=== PATIENT | male | born 1930 | race Caucasian/White ===

== ENCOUNTER 2020-06-15 18:02 | Emergency (ER) | payer MEDICARE ==
[~2020-06-15] VITALS: Ht 167.6 cm; Wt 90.7 kg
[~2020-06-15 18:02] MED LIST: 2 BP MEDS; ASPI81CH PO
[2020-06-15 19:02] LABS: Source, Urine Clean Catch
[2020-06-15 19:11] LABS: Appearance, Urine Turbid (Clear); Bilirubin, Urine Neg (Neg); Blood, Urine 5+ (Neg); Color, Urine Amber (P-Yellow); Glucose Qualitative, Urine Neg (Neg); Ketones, Urine 1+ (Neg); Leukocyte Esterase, Urine 3+ (Neg); Nitrite, Urine Pos (Neg); Protein, Urine 3+ (Neg); Urobilinogen, Urine 1+ (Normal)
[2020-06-15 19:22] LABS: Bacteria Many /hpf; Red Blood Cells, Urine TNTC /hpf (0-2); Squamous Epithelial Cells Not Seen /hpf (Few); White Blood Cells, Urine TNTC /hpf (0-5)
[2020-06-15] MEDS ORDERED: CEFP200 PO (19:28)
== END 2020-06-15 19:45 | disposition home or self-care (01) ==
LOC: ER 18:02
PROVIDERS: Physician Assistant
DX: T83.091A Other mechanical complication of indwelling urethral catheter, initial encounter (principal); N39.0 Urinary tract infection, site not specified; Z79.82 Long term (current) use of aspirin; Z87.891 Personal history of nicotine dependence; Z79.899 Other long term (current) drug therapy
CPT/HCPCS: 51702; 81001; 87077; 87086; 87186; 99283-25; A9270-GY

== ENCOUNTER 2020-06-17 05:02 | Emergency (ER) | payer MEDICARE ==
[~2020-06-17] VITALS: Ht 172.7 cm; Wt 90.7 kg
[~2020-06-17 05:02] MED LIST changes: +CEFP200 PO
[2020-06-17] MEDS ORDERED: BENAZEPRIL-HCT1 EACH PO (05:34)
== END 2020-06-17 06:39 | disposition home or self-care (01) ==
LOC: ER 05:02
DX: T83.091A Other mechanical complication of indwelling urethral catheter, initial encounter (principal); E11.9 Type 2 diabetes mellitus without complications; Z87.891 Personal history of nicotine dependence; Z79.82 Long term (current) use of aspirin; Z79.899 Other long term (current) drug therapy; Z98.890 Other specified postprocedural states
CPT/HCPCS: 51700; 99283-25

== ENCOUNTER 2021-09-25 17:12 | Inpatient (IN) | payer MEDICARE ==
[~2021-09-25] VITALS: Ht 167.6 cm; Wt 86.6 kg
[~2021-09-25 17:12] MED LIST changes: +BENAZEPRIL-HCT1 EACH PO
[2021-09-25 18:21] LABS: BASOPHILS ABSOLUTE AUTO 0.04 K/mm3 (0.00-0.23); BASOPHILS PERCENT AUTO 1 % (0-2); EOSINOPHILS PERCENT AUTO 0 % (0-6); Hematocrit 41.5 % (37.0-53.0); Hemoglobin 14.1 g/dL (13.5-17.5); IMMATURE GRAN ABSOLUTE AUTO 0.02 K/mm3 (0.00-0.10); IMMATURE GRAN PERCENT AUTO 0 % (0-1); LYMPHOCYTES ABSOLUTE AUTO 0.67 K/mm3 (0.84-5.20); LYMPHOCYTES PERCENT AUTO 11 % (21-46); MONOCYTES ABSOLUTE AUTO 0.72 K/mm3 (0.16-1.47); MONOCYTES PERCENT AUTO 12 % (4-13); Mean Corpuscular HGB 30.6 pg (26.0-34.0); Mean Corpuscular Volume 90 fL (80-100); Mean Platelet Volume 11.1 fL (9.1-12.4); NEUTROPHILS ABSOLUTE AUTO 4.82 K/mm3 (1.96-9.15); NEUTROPHILS PERCENT AUTO 77 % (41-73); Platelet Count 108 K/mm3 (150-400); RDW Coefficient Variation 13.8 % (11.7-14.2); RDW Standard Deviation 45.1 fL (35.1-46.3); Red Blood Cell Count 4.61 M/mm3 (4.30-5.90); White Blood Cell Count 6.27 K/mm3 (4.00-11.30)
[2021-09-25 18:39] LABS: Albumin, Blood 3.2 g/dL (3.4-5.0); Albumin/Globulin Ratio 0.7 (0.8-1.8); Bilirubin, Total 1.1 mg/dL (0.1-1.0); Bun/Creatinine Ratio 16.9 (12.0-20.0); Creatinine, Blood 1.24 mg/dL (0.60-1.20); Globulin, Blood 4.3 g/dL (2.2-4.0); Potassium, Blood 4.2 mmol/L (3.5-5.5); Total Protein, Blood 7.5 g/dL (6.4-8.2)
[2021-09-25 21:19] LABS: Influenza A, PCR NEGATIVE (NEGATIVE); Influenza B, PCR NEGATIVE (NEGATIVE); SARS-Cov-2 (COVID-19) PCR, MMC NEGATIVE (NEGATIVE)
[2021-09-25 21:20] LABS: Resp Syncytial Virus, PCR POSITIVE (NEGATIVE)
[2021-09-25] MEDS ORDERED: [UNRECOGNIZED DRUG - CODE] PO (21:58)
[2021-09-25] MEDS ORDERED: TAMSULOSIN HCL0.4 M1 PO (21:59)
[2021-09-25] MEDS ORDERED: FINA5 PO (21:59)
[2021-09-26 06:34] LABS: BASOPHILS ABSOLUTE AUTO 0.04 K/mm3 (0.00-0.23); BASOPHILS PERCENT AUTO 1 % (0-2); EOSINOPHILS ABSOLUTE AUTO 0.01 K/mm3 (0.00-0.68); EOSINOPHILS PERCENT AUTO 0 % (0-6); Hematocrit 39.6 % (37.0-53.0); Hemoglobin 13.4 g/dL (13.5-17.5); IMMATURE GRAN ABSOLUTE AUTO 0.01 K/mm3 (0.00-0.10); IMMATURE GRAN PERCENT AUTO 0 % (0-1); LYMPHOCYTES ABSOLUTE AUTO 1.31 K/mm3 (0.84-5.20); LYMPHOCYTES PERCENT AUTO 25 % (21-46); MONOCYTES ABSOLUTE AUTO 0.76 K/mm3 (0.16-1.47); MONOCYTES PERCENT AUTO 15 % (4-13); Mean Corpuscular HGB 30.7 pg (26.0-34.0); Mean Corpuscular HGB Conc 33.8 g/dL (31.5-36.5); Mean Corpuscular Volume 91 fL (80-100); Mean Platelet Volume 11.5 fL (9.1-12.4); NEUTROPHILS ABSOLUTE AUTO 3.08 K/mm3 (1.96-9.15); NEUTROPHILS PERCENT AUTO 59 % (41-73); Platelet Count 95 K/mm3 (150-400); RDW Coefficient Variation 13.7 % (11.7-14.2); RDW Standard Deviation 46.5 fL (35.1-46.3); Red Blood Cell Count 4.37 M/mm3 (4.30-5.90); White Blood Cell Count 5.21 K/mm3 (4.00-11.30)
[2021-09-26 06:57] LABS: Alanine Aminotransfer (ALT/SGP 22 U/L (12-78); Albumin, Blood 2.8 g/dL (3.4-5.0); Albumin/Globulin Ratio 0.7 (0.8-1.8); Alk Phos 65 U/L (50-136); Anion Gap 7 mmol/L (6-16); Aspartate Aminotrans (AST/SGOT 18 U/L (12-37); Bilirubin, Total 1.2 mg/dL (0.1-1.0); Blood Urea Nitrogen 18 mg/dL (8-24); CO2, Blood 26 mmol/L (21-32); Calcium, Blood 8.7 mg/dL (8.5-10.1); Chloride, Blood 104 mmol/L (98-108); Creatinine, Blood 1.06 mg/dL (0.60-1.20); Globulin, Blood 3.8 g/dL (2.2-4.0); Glomerular Filtration Rate >60 (60-); Glucose, Blood 130 mg/dL (70-99); Potassium, Blood 4.2 mmol/L (3.5-5.5); Sodium, Blood 137 mmol/L (136-145); Total Protein, Blood 6.6 g/dL (6.4-8.2)
--- NOTE | 2021-09-26 16:29 | NUR ---
SHIFT SUMMARY PATIENT IS ALERT AND ORIENTATED X3-4. PATIENT WAS ADMITTED FROM ED AT 1530 FOR RSV/ ACUTE RESP FAILURE. PATIENT HAS WORKED WITH PT AND DID WELL AND PT HAS RECOMMENDED INDEP WITH SUPERVISION. PATIENT HAS HAD NO ACUTE EVENTS THIS SHIFT. VITAL SIGNS REVIEWED. BED IN LOCKED AND LOWEST POSITION. 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
--- NOTE | 2021-09-27 04:32 | NUR ---
SHIFT SUMMARY MARGIE HANSON VITALS WERE STABLE ALL NIGHT. SLEPT MOST OF THE NIGHT. HE IS STILL ON 2L NC SPO2 [id number]%. CONTINUE TO MONITOR
[2021-09-27 05:06] LABS: BASOPHILS ABSOLUTE AUTO 0.02 K/mm3 (0.00-0.23); BASOPHILS PERCENT AUTO 0 % (0-2); EOSINOPHILS ABSOLUTE AUTO 0.01 K/mm3 (0.00-0.68); EOSINOPHILS PERCENT AUTO 0 % (0-6); Hematocrit 39.7 % (37.0-53.0); Hemoglobin 13.4 g/dL (13.5-17.5); IMMATURE GRAN ABSOLUTE AUTO 0.01 K/mm3 (0.00-0.10); IMMATURE GRAN PERCENT AUTO 0 % (0-1); LYMPHOCYTES ABSOLUTE AUTO 1.29 K/mm3 (0.84-5.20); LYMPHOCYTES PERCENT AUTO 26 % (21-46); MONOCYTES PERCENT AUTO 12 % (4-13); Mean Corpuscular HGB 30.7 pg (26.0-34.0); Mean Corpuscular HGB Conc 33.8 g/dL (31.5-36.5); Mean Corpuscular Volume 91 fL (80-100); Mean Platelet Volume 11.4 fL (9.1-12.4); NEUTROPHILS ABSOLUTE AUTO 2.99 K/mm3 (1.96-9.15); NEUTROPHILS PERCENT AUTO 61 % (41-73); Platelet Count 97 K/mm3 (150-400); RDW Coefficient Variation 13.7 % (11.7-14.2); RDW Standard Deviation 46.3 fL (35.1-46.3); Red Blood Cell Count 4.36 M/mm3 (4.30-5.90); White Blood Cell Count 4.92 K/mm3 (4.00-11.30)
[2021-09-27 05:40] LABS: Albumin, Blood 2.7 g/dL (3.4-5.0); Anion Gap 7 mmol/L (6-16); Blood Urea Nitrogen 23 mg/dL (8-24); Bun/Creatinine Ratio 23.6 (12.0-20.0); CO2, Blood 26 mmol/L (21-32); Chloride, Blood 106 mmol/L (98-108); Creatinine, Blood 0.97 mg/dL (0.60-1.20); Glomerular Filtration Rate >60 (60-); Glucose, Blood 194 mg/dL (70-99); Potassium, Blood 4.1 mmol/L (3.5-5.5); Sodium, Blood 139 mmol/L (136-145)
[2021-09-27] MEDS ORDERED: ALBU2.5V5 INH (11:01)
[2021-09-27] MEDS ORDERED: AZIT500 PO (11:02)
[2021-09-27] MEDS ORDERED: ROBITUSSIN DM PO (11:03)
[2021-09-27] MEDS ORDERED: IPRAT-ALBUT 0.5-3 ML INH (11:04)
[2021-09-27] MEDS ORDERED: PRED20 PO (11:04)
--- NOTE | 2021-09-27 12:34 | NUR ---
SPOKE WITH [facility], FOLLOW UP APPT SCHEDULED. PER DR LORENZO RECORDS FAXED TO THEM REGARDING NEW AFIB/ AFLUTTER. PT REFUSING NEBULIZER, DR LORENZO NOTIFIED.
--- NOTE | 2021-09-27 13:14 | NUR ---
REVIEW D'C WITH PATIENT AND SON. AWARE HAS F/U APPT IN [facility] BUT WHO IS HERE & JUST BROKE HERE HIP, SO ADVISED IF CAN NOT MAKE IT TO CALL AND RESCHEDULE. ADVISED TO TAKE ALL MEDS. ADVISED CAN RETURN TO E.R. IF NEEDED. ANSWER ALL QUESTIONS. VERBALIZES UNDERSTANDING. IN W/C WITH HAND GLOVE CLEANER WHEELING OUT.
== END 2021-09-27 13:11 | disposition home or self-care (01) | DRG 193 ==
LOC: ER 17:12 → ERHOLD 23:02 → MEDS 09-26 11:22
PROVIDERS: Emergency Medicine; Internal Medicine; ADMIT Internal Medicine
DX: J15.9 Unspecified bacterial pneumonia (principal); J96.01 Acute respiratory failure with hypoxia; N17.9 Acute kidney failure, unspecified; I48.92 Unspecified atrial flutter; E87.1 Hypo-osmolality and hyponatremia; E86.9 Volume depletion, unspecified; Z20.822 Contact with and (suspected) exposure to COVID-19; E11.65 Type 2 diabetes mellitus with hyperglycemia; I48.91 Unspecified atrial fibrillation; N40.0 Benign prostatic hyperplasia without lower urinary tract symptoms; I25.2 Old myocardial infarction; Z98.890 Other specified postprocedural states
CPT/HCPCS: 0241U; 36415; 71045; 80053; 80069; 82947; 83880; 84145; 85025; 87040; 93005; 93010; 94640; 94760; 94761; 96365; 96367; 96372; 97161; 97530; 99285-25; A9270; J0456; J0696; J1650; J7030; J7050; J7512